=== PATIENT | male | born 1960 | race Caucasian/White ===

== ENCOUNTER 2020-01-28 09:21 | Emergency (ER) | payer MEDICAID ==
[~2020-01-28] VITALS: Ht 185.4 cm; Wt 113.9 kg
[2020-01-28 09:27] VITALS: BP 165/91
--- NOTE | 2020-01-28 09:45 | NUR ---
Non healing knee wound x 1 month no swelling/redness besides localized wound no fevers, no dm, not a smoker
== END 2020-01-28 10:34 | disposition home or self-care (01) ==
LOC: ED 10:18
DX: L03.116 Cellulitis of left lower limb (principal)
CPT/HCPCS: 99283